=== PATIENT | male | born 2005 | race Caucasian/White ===

== ENCOUNTER 2025-02-25 12:51 | Emergency (ER) | payer BC, SELFPAY ==
--- NOTE | ~2025-02-25 | CT_ITS ---
CT of the Abdomen and Pelvis: Indication: Periumbilical pain Technique: 2.5 mm axial scans were obtained through the abdomen and pelvis following intravenous adm inistration of 100 cc of Omnipaque 350. Dose reduction technique was used on this scan by utilizing a utomated exposure control and iterative reconstruction technique. The dose-length product (DLP) was 3 13.29 mGy-cm. Findings: Scans through the lung bases are unremarkable. The liver, spleen, pancreas, gallbladder, adrenals and kidneys are within normal limits. No evidence of aortic aneurysm. No lymphadenopathy. No bowel obstruction or bowel wall thickening. There is no evidence to suggest acute appendicitis. Images through the pelvis were performed. Urinary bladder unremarkable. No pelvic mass seen. Trace pe lvic ascites. Impression: Trace pelvic ascites, otherwise unremarkable exam. Reviewed, dictated and finalized at location . Impression: Trace pelvic ascites, otherwise unremarkable exam.
[2025-02-25 13:00] VITALS: BP 133/82; PULSE 66; RESP 18; TEMP 36.4; O2SAT 100
--- OUTSIDE RECORDS SUMMARY | 2025-02-25 13:00 | XMS_ITS | Clinical Summary ---
Author Organization [facility] Address [address] [place] [address] Care Team Providers Care Personal Lines Sales Rep Name Role Phone Unavailable Primary Care Provider Unavailabl e Source Comments [facility] [employer],non-owned Affiliates and Associated Physician Practices is amultiple site organization consisting of ambulatory clinics and hospital sitesin [place], [place], [place] and [place]. This disclosure is being madepursuant to the Care Everywhere program and may not contain all information available regarding this patient. Last updated 18.[facility] [employer] Allergies No known active allergies Medications * Be aware that medications may not be up to date on this document. Alwaysverify current medications with the patient. cefdinir (OMNICEF) 300 MG capsule Take 300 mg by mouth every 12 hours 1 Active cetirizine (ZYRTEC ALLERGY) 10 MG gel capsule Active ketorolac (TORADOL) 10 MG tabletIndications: FCU (flexor carpi ulnaris) tenosynovitis Take 1 (one) tablet by mouth every 6 hours 20 tablet 1 Active Active Problems No known active problems Family History Medical History Relation Name Comments Hypertension Father Hypertension Mother Relation Name Status Comments Father Alive Mother Alive Social History Tobacco Use Types Packs/Day Years Used Date Smoking Tobacco: Never Smokeless Tobacco: Never Alcohol Use Standard Drinks/Week Comments Not Currently 0 (1 standard drink = 0.6 oz pur e alcohol) Sex and Gender Information Value Date Recorded Sex Assigned at Not on file 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 Gender Identity Not on file Sexual Orientation Not on file Last Filed Vital Signs Vital Sign Reading Time Taken Comments Blood Pressure - - Pulse - - Temperature - - Respiratory Rate - - Oxygen Saturation - - Inhaled Oxygen Concentration - - Weight 77.1 kg (170 lb) 05/23/2021 1:00 PM CDT Height 177.8 cm (5' 10 ) 05/23/2021 1:00 PM CDT Body Mass Index 24.39 05/23/2021 1:00 PM CDT Plan of Treatment Health Maintenance Due Date Last Done Comments HIV SCREENING 12/22/2019 HPV VACCINE (1 - Male 3-dose series) 12/22/2019 MENINGOCOCCAL (Group B) VACC INE SHARED DECISION-MAKING (1 of 2 - Standard) 2020 HEPATITIS C SCREENING 12/17/2022 DTAP/TDAP/TD VACCINES (1 - Tdap) 12/22/2023 HEPATITIS B VACCINE (1 of 3 - 19+ 3-dose series) 12/22/2023 COVID-19 VACCINE (1 - 2023-2 5 season) 2024 DEPRESSION SCREENING 10/15/2024 INFLUENZA VACCINE (Season Ended) 2025 ZOSTER VACCINE (1 of 2) 2054 HIB VACCINE Aged Out No longer eligi ble based on patient's age to complete this topic MENINGOCOCCAL GROUPS A/C/Y/W VACCINE Aged Out No longer eligible b ased on patient's age to complete this topic PNEUMOCOCCAL VACCINE Aged Out No long er eligible based on patient's age to complete this topic Insurance [facility] [employer] PLAN Member Subscriber Plan / Payer (Ef fective for All Dates) Name:Annika Tirado Relation to Subscriber:Not on file Name:ANNIKA TIRADO Subscriber ID:Not on file Date of :2005 (Home) Address: [address] [place] [id number] Payer ID:Not on file Type:HMO Address: [address] GROUP HE[employer] PLAN HEALTH PLAN GROUP HEALTH PLAN Member Subscriber Plan / Payer (Ef fective for All Dates) Name:Annika Tirado Relation to Subscriber:Not on file Name:ANNIKA TIRADO Subscriber ID:Not on file Date of :2005 (Home) Address: [address] [place] [address] Payer ID:Not on file Type:HMO Address: [address] GROUP HE[employer] PLAN Member Subscriber Plan / Payer (Ef fective for All Dates) Name:Annika Tirado Relation to Subscriber:Not on file Name:ANNIKA TIRADO Subscriber ID:Not on file Date of :2005 (Home) Address: [address] [place] [address] Payer ID:Not on file Type:HMO Address: [address] GROUP HE[employer] PL[employer] Member Subscriber Plan / Payer (Ef fective for All Dates) Name:Annika Tirado Relation to Subscriber:Not on file Name:ANNIKA TIRADO Subscriber ID:Not on file Date of :2005 (Home) Address: [address] [place] [address] Payer ID:Not on file Type:HMO Address: [address] [employer] GROUP HEALTH PLAN GROUP HEALTH PLAN HEALTH CARE CARE CARE HEALTH CARE CARE Member Subscriber Plan / Payer (Ef fective 2020-) Name:Celestino Annika Acosta Member ID:[id number] Relation to Subscriber:Child Name:EARLE TIRADO Subscriber ID:Not on file Date of :1967 (Home) Address: [address] [place] [address] Payer ID:[id number] (NAIC) Type:PPO Address: [place] [id number] [place] [id number]
--- OUTSIDE RECORDS SUMMARY | 2025-02-25 13:00 | XMS_ITS | Referral Summary ---
Author Organization [facility] Address [address] [place] [address] Care Team Providers Care Lead Trainer Name Role Phone Huan Martines MD Primary Care Provider [phone] Allergies No known active allergies Medications cetirizine 10 mg capsule Take by mouth Active naproxen (NAPROSYN) 500 mg tablet TAKE 1 TABLET BY MOUTH TWICE A DAY NEEDED ON A FULL STOMACH OR WITH AN ANTACID FOR 15 DAYS 12/25/2022 Active Active Problems Problem Noted Date Diagnosed Date Contusion of rib on right side 01/19/2023 Social History Tobacco Use Types Packs/Day Years Used Date Smoking Tobacco: Never Smokeless Tobacco: Never Sex and Gender Information Value Date Recorded Sex Assigned at Not on file 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 H[facility]/PPO Address: [address] [place] [id number] [facility] H[facility]/PPO Address: [address] [phone] [place] [address] [facility]/PPO Address: [facility] [address] [place] [address] Care Teams Lead Trainer Relationship Specialty Start Date End Date Huan Martines MD PCP - General Family Medicine 09/17/19
--- OUTSIDE RECORDS SUMMARY | 2025-02-25 13:00 | XMS_ITS | Clinical Summary ---
Author Organization [facility] Address [address] [place] [address] Care Team Providers Care Flatware Maker Name Role Phone Huan Martines MD Primary Care Provider Allergies No known active allergies Medications cetirizine 10 mg capsule Take by mouth Active naproxen (NAPROSYN) 500 mg tablet TAKE 1 TABLET BY MOUTH TWICE A DAY NEEDED ON A FULL STOMACH OR WITH AN ANTACID FOR 15 DAYS 12/25/2022 Active Active Problems Problem Noted Date Diagnosed Date Contusion of rib on right side 01/19/2023 Medical History Medical History Date Comments Rib contusion 01/19/2023 Contusion of rib on right side 01/19/2023 Family History Medical History Relation Name Comments No Known Problems Father No Known Problems Mother Relation Name Status Comments Father Alive Mother Alive Social History Tobacco Use Types Packs/Day Years Used Date Smoking Tobacco: Never Smokeless Tobacco: Never Sex and Gender Information Value Date Recorded Sex Assigned at Not on file 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 Gender Identity Not on file Sexual Orientation Not on file Obstetrics History Last Filed Vital Signs Vital Sign Reading [...] 01/25/2023 12:59 PM CDT Plan of Treatment Health Maintenance Due Date Last Done Comments Depression Screening 2005 Hepatitis C Screening 2004 DTaP/Tdap/Td Vaccine (1 - Tdap) 12/22/2015 Varicella Vaccines (1 of 2 - 13+ 2-dose series) 2017 HPV Vaccines (1 - Male 3-dos e series) 12/22/2019 Meningococcal B Vaccine (1 o f 2 - Standard) 2020 Hepatitis B Screening 2022 Regular Well Visit/Exam 18-64 2022 Covid-19 Vaccine (3 - 2023-2 5 season) 2024 06/25/2021, 05/25/2021 Influenza Vaccine (Season Ended) 2025 Meningococcal Vaccine Aged Out No felicity anson eligible based on patient's age to complete this topic Pneumococcal vaccine <65 Aged Out No longer eligible based on patient's age to complete this topic Insurance [facility] [place] [address] Care Teams Flatware Maker Relationship Specialty Start Date End Date Huan Martines MD PCP - General Family Medicine 09/17/19
--- OUTSIDE RECORDS SUMMARY | 2025-02-25 13:00 | XMS_ITS | Clinical Summary ---
Author Organization [facility] Address [address] [place] [address] Care Team Providers Care Printed Circuit Board Assembler Name Role Phone Oscar Barron DO Primary Care Provider [phone] Allergies No known active allergies Medications No known medications Active Problems No known active problems Social History Tobacco Use Types Packs/Day Years Used Date Smoking Tobacco: Never Assessed Tobacco Cessation:Counseling Given: Not Answered Adolescent Education Answer Date Record ed Getting School Help Needed Not on file 05/20 Sex and Gender Information Value Date Recorded Sex Assigned at Not on file Legal Sex Male 10:18 AM CDT Gender Identity Not on file Sexual Orientation Not on file Last Filed Vital Signs Vital Sign Reading Time Taken Comments Blood Pressure 122/58 08/09/2022 10:04 AM EDT Pulse 61 08/09/2022 10:04 AM EDT Temperature 37 C (98.6 F) 08/09/2022 10:04 AM EDT Respiratory Rate - - Oxygen Saturation 99% 08/09/2022 10:04 AM EDT Inhaled Oxygen Concentration - - Weight 80.7 kg (178 lb) 08/09/2022 10:04 AM EDT Height 181.6 cm (5' 11.5 ) 08/09/2022 10:04 AM E DT Body Mass Index 24.48 08/09/2022 10:04 AM EDT Plan of Treatment Health Maintenance Due Date Last Done Comments CHLAMYDIA SCREENING (ANNUAL) 11-24 YEARS 12/22/2015 HPV VACCINES (1 - Male 3-dose series) 12/22/2019 DTAP/TDAP/TD VACCINES (1 - Tdap) 12/22/2023 HEPATITIS B VACCINES (1 of 3 - 19+ 3-dose series) 06/2024 INFLUENZA VACCINE (#1) 2024 Insurance [facility] SHARED PPO [facility] PPO Care Teams Printed Circuit Board Assembler Relationship Specialty Start Date [place] [id number] [place] [place] [address] PCP - General Family Practice 08/04/22
[2025-02-25] MEDS: SODIUM CHLORIDE 0.9% IV 1,000 ML 999 ML IV CONT (13:15)
[2025-02-25] MEDS: ONDANSETRON INJ 4 MG/2 ML VIAL IV PUSH (13:16)
[2025-02-25] MEDS: KETOROLAC 30 MG/ML VIAL (*BKC) 15 MG IV PUSH (13:17)
[2025-02-25] MEDS: FAMOTIDINE 20 MG/2 ML VIAL IV PUSH (13:18)
[2025-02-25 13:23] LABS: Basophils Percent Auto 0.3 % (0.2-1.2); Eosinophils Absolute Auto 0.1 K/mm3 (0-0.3); Eosinophils Percent Auto 1.5 % (0-4.4); Hematocrit 46.8 % (42.0-52.0); Hemoglobin 15.9 g/dL (14.0-18.0); Immature Granulocyte Absolute 0.02 K/mm3 (0.00-0.031); Immature Granulocyte Percent A 0.3 % (0-0.5); Lymphocytes Absolute Auto 1.34 K/mm3 (0.9-3.2); Lymphocytes Percent Auto 18.8 % (18.3-44.2); Mean Corpuscular Hemoglobin 29.7 pg (26-34); Mean Corpuscular Volume 87.5 fl (80-100); Mean Platelet Volume 10.6 fl (7.4-10.4); Monocytes Absolute Auto 0.7 K/mm3 (0.1-0.6); Monocytes Percent Auto 9.1 % (2.6-8.5); Platelet Count Result 200 k/mm3 (150-375); Red Blood Count 5.35 M/mm3 (4.6-6.20); Red Cell Distribution Width 12.5 % (11.5-14.5); White Blood Count 7.1 K/mm3 (4.5-10.0)
[2025-02-25 13:28] LABS: Add Urine Microscopic? NO; Appearance Urine Clear (Clear); Bilirubin Urine Negative (Negative); Blood Urine Negative (Negative); Color Urine Yellow (Yellow); Glucose Urine UA Negative (Negative); Ketones Urine Negative (Negative); Leukocyte Esterase Ur Negative LEU/UL (Negative); Nitrate Urine Negative (Negative); Protein Urine Negative (Negative); Specific Grav Ur 1.021 (1.001-1.035); pH Urine 7.5 (5.0-9.0)
[2025-02-25 13:33] LABS: Alanine Aminotransferase 20 U/L (6-50); Albumin Level 5.1 g/dL (3.5-5.1); Alkaline Phosphatase 75 U/L (38-126); Anion Gap 14 mmol/L (4-12); Aspartate Amino Transferase 28 U/L (17-59); Bilirubin,Total 2.5 mg/dL (0.2-1.3); Blood Urea Nitrogen 15 mg/dL (9-20); Calcium 9.8 mg/dL (8.4-10.2); Carbon Dioxide 21 mmol/L (22-30); Chloride 105 mmol/L (98-107); Estimated CRCL calculation 125 ml/min; Estimated Glomerular Filt Rate > 60; Glucose 104 mg/dL (65-110); Lipase 37 U/L (23-300); Potassium 4.2 mmol/L (3.4-5.0); Sodium 140 mmol/L (137-145)
--- NOTE | 2025-02-25 13:38 | ED_ITS ---
HPI - Abdominal Pain General Chief Complaint: Abdominal Pain Stated Complaint: abd pain Time Seen by Provider: 02/25/25 12:56 History of Present Illness HPI narrative: 19-year-old male presents to the ED with his mother at bedside for abdominal pain and diarrhea that started 2 hours prior to arrival. Patient states the pain is in the center of his abdomen. He has 4 episodes of diarrhea since the onset of symptoms. Reports associated nausea but no vomiting. He denies fever, dysuria or hematuria. No prior abdominal surgeries. Related Data Home Medications Medication Instructions Recorded Confirmed Last Taken Type valacyclovir 1 gram tablet 2,000 mg PO Q12H PRN 06/18/24 06/18/24 Unknown History (Valtrex) Allergies Allergy/AdvReac Type Severity Reaction Status Date / Time No Known Allergies Allergy Verified 02/25/25 13:03 Review of Systems 2 Review of Systems: All systems reviewed & are unremarkable except as noted in HPI and below PMFSH Family History Family History Father Palpitations Acid reflux Mother No problems noted. Sibling No problems noted. Other Family history of lung cancer Social History Social History Smoking status: Never smoker Second hand tobacco smoke exposure: No Alcohol intake: never Substance use: never Substance use type: does not use Lack of Transportation: No Lack of Food: Never True Current Housing: I Have Housing Concerned About Future Housing: No Difficulty Paying Gas/Electric Bills: No Difficulty Paying for Meds: No Currently Unemployed: No Education: High School Diploma/GED Difficulty w/ Childcare or Family Care: No Living arrangements: with family Occupation/Education: student Additional occupation/education comments: 12th. Gender identity (if verbalized by the patient): Male Spiritual care concerns: No Exam 2 Narrative: GENERAL: Tearful, appears uncomfortable HEAD: Normocephalic, atraumatic. EYES: EOMI. ENT: Nares clear, no rhinorrhea or epistaxis. Mucous membranes moist. NECK: Supple. CHEST: Clear to auscultation. No respiratory distress. HEART: Regular rate and rhythm. No murmur heard. Normal peripheral pulses. ABDOMEN: Normoactive bowel sounds. Abdomen soft with tenderness in the periumbilical region and epigastrium. No rebound or rigidity. No CVA tenderness. EXTREMITIES: Normal range of motion. No edema. SKIN: Warm, dry, no rash. NEURO: No focal deficits. Alert and oriented x3 Course Vital Signs Vital signs: Vital Signs Temperature 97.6 F 02/25/25 13:00 Pulse Rate 66 02/25/25 13:00 Respiratory Rate 18 02/25/25 13:00 Blood Pressure 133/82 02/25/25 13:00 Pulse Oximetry 100 02/25/25 13:00 Oxygen Delivery Room Air 02/25/25 13:00 Temperature 97.6 F 02/25/25 13:00 Pulse Rate 53 L 02/25/25 14:02 Respiratory Rate 16 02/25/25 14:02 Blood Pressure 119/69 02/25/25 14:02 Pulse Oximetry 98 02/25/25 14:02 Oxygen Delivery Room Air 02/25/25 13:00 MDM - Abdominal Pain MDM Narrative Medical decision making narrative: 19-year-old male presents emergency department for periumbilical abdominal pain with diarrhea that started 2 hours prior to arrival. See HPI for further history. Triage vitals are stable. Exam is significant for the above. CBC without leukocytosis or anemia. Chemistries show a bicarb of 21 anion gap of 14 consistent with dehydration. Glucose normal. Fluids provided. Bilirubin is elevated at 2.5 with normal AST, ALT and alk phos. Lipase is within normal limits. UA is unremarkable. CT abdomen pelvis shows trace pelvic ascites with an otherwise unremarkable exam. Patient and mother at bedside updated on results. Patient received IV fluids, Toradol, Pepcid and Zofran with improvement. Still having minimal abdominal cramping. Will provide p.o. Bentyl. On repeat abdominal exam he has mild tenderness to the epigastrium, no right upper quadrant tenderness and negative Arreola sign. I suspect his presentation is due to viral gastroenteritis. I encouraged increased fluid intake, bland diet, follow-up with PCP and discussed strict ED return precautions. Zofran, Pepcid and Bentyl sent to pharmacy. Patient and mother agreeable with the plan verbalized understanding. Discharged in stable condition. Lab Data 02/25/25 13:08 02/25/25 13:08 Labs: Lab Results 02/25/25 Range/Units 13:08 WBC 7.1 (4.5-10.0) K/mm3 RBC 5.35 (4.6-6.20) M/mm3 Hgb 15.9 (14.0-18.0) g/dL Hct 46.8 (42.0-52.0) % MCV 87.5 (80-100) fl MCH 29.7 (26-34) pg MCHC 34.0 (32-36) g/dl RDW 12.5 (11.5-14.5) % Plt Count 200 (150-375) k/mm3 MPV 10.6 H (7.4-10.4) fl Immature Gran % (Auto) 0.3 (0-0.5) % Neut % (Auto) 70.0 (45.5-73.1) % Lymph % (Auto) 18.8 (18.3-44.2) % Alpine % (Auto) 9.1 H (2.6-8.5) % Eos % (Auto) 1.5 (0-4.4) % Baso % (Auto) 0.3 (0.2-1.2) % Lymph # (Auto) 1.34 (0.9-3.2) K/mm3 Alpine # (Auto) 0.7 H (0.1-0.6) K/mm3 Eos # (Auto) 0.1 (0-0.3) K/mm3 Baso # (Auto) 0.0 (0.0-0.1) K/mm3 Abs Immat Gran (auto) 0.02 (0.00-0.031) K/mm3 Absolute Neuts (auto) 5.0 (1.3-6.7) K/mm3 Absolute Nucleated RBC 0.000 (0.0-0.012) K/mm3 Nucleated RBC % 0.0 (0.0-0.2) % Sodium 140 (137-145) mmol/L Potassium 4.2 (3.4-5.0) mmol/L Chloride 105 (98-107) mmol/L Carbon Dioxide 21 L (22-30) mmol/L Anion Gap 14 H (4-12) mmol/L BUN 15 (9-20) mg/dL Creatinine 0.91 (0.7-1.3) mg/dL Estim Creat Clear Calc 125 ml/min Estimated GFR > 60 (59 - ) Glucose 104 (65-110) mg/dL Calcium 9.8 (8.4-10.2) mg/dL Total Bilirubin 2.5 H (0.2-1.3) mg/dL AST 28 (17-59) U/L ALT 20 (6-50) U/L Alkaline Phosphatase 75 (38-126) U/L Total Protein 8.0 (6.3-8.2) g/dL Albumin 5.1 (3.5-5.1) g/dL Lipase 37 (23-300) U/L Urine Color Yellow (Yellow) Urine Appearance Clear (Clear) Urine pH 7.5 (5.0-9.0) Ur Specific Fleischmanns 1.021 (1.001-1.035) Urine Protein Negative (Negative) mg/dL Urine Glucose (UA) Negative (Negative) mg/dL Urine Ketones Negative (Negative) mg/dL Ur Blood (Man) Negative (Negative) Urine Nitrate Negative (Negative) Urine Bilirubin Negative (Negative) Urine Urobilinogen 1.0 (<2.0) mg/dL Leukocyte Esterase Rfl Negative (Negative) JOSE JUAN/UL Imaging Data Radiologist's impression: ITS Impressions Abdomen/Pelvis CT 02/25/25 13:50 Impression: Trace pelvic ascites, otherwise unremarkable exam. Discharge Plan Discharge Clinical Impression: Gastroenteritis, Hyperbilirubinemia, Pelvic ascites Patient Disposition: Home Condition: Stable Instructions: Antibiotic Form, Gastroenteritis (DC) Additional Instructions: You were evaluated in the emergency department for abdominal pain and diarrhea. I suspect her symptoms are due to viral gastroenteritis as discussed. Please make sure to drink plenty of fluids including water, Gatorade and Pedialyte. Take dicyclomine as needed for spasms, ondansetron as needed for nausea and vomiting, Pepcid as an antacid. Incidentally her lab work showed an elevated bilirubin today and the CT showed trace pelvic ascites as discussed. Please follow-up with your primary care provider regarding this. Return to the emergency department if you develop fever of 100.4 or greater, your unable to tolerate food or fluids, you develop worsening or changing pain, or other concerning symptoms. Patient Language: [place] Prescriptions: New dicyclomine 10 mg capsule 10 mg PO BID Qty: 14 0RF ondansetron 4 mg tablet,disintegrating 4 mg PO Q8H Qty: 14 0RF famotidine 20 mg tablet 20 mg PO DAILY Qty: 14 0RF No Action valacyclovir [Valtrex] 1 gram tablet 2,000 mg PO Q12H PRN azithromycin [Zithromax] 250 mg tablet See Rx Instructions PO .COMPLEX Qty: 6 0RF Rx Instructions: take 500 mg today (day 1), then 250 mg for 4 days (days 2-5) PO Follow-up/Referrals: Huan Martines MD [Primary Care Provider] -
[2025-02-25 14:02] VITALS: BP 119/69; PULSE 53; RESP 16; O2SAT 98
--- OUTSIDE RECORDS SUMMARY | 2025-02-25 14:21 | XMS_ITS | Clinical Summary ---
Author Organization [facility] Address [address] [place] [address] Care Team Providers Care Lunchroom Mother Name Role Phone Unavailable Primary Care Provider Unavailabl e Source Comments [facility] [employer],non-owned Affiliates and Associated Physician Practices is amultiple site organization consisting of ambulatory clinics and hospital sitesin [place], [place], [place] and [place]. This disclosure is being madepursuant to the Care Everywhere program and may not contain all information available regarding this patient. 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 Gender Identity Not on file Sexual Orientation [...] patient's age to complete this topic Insurance [facility] [employer] [facility] Member Subscriber Plan / Payer (Ef fective for All Dates) Name:Annika Tirado Relation to Subscriber:Not on file Name:ANNIKA TIRADO Subscriber ID:Not on file Date of :2005 (Home) Address: [address] [place] [id number] Payer ID:Not on file Type:HMO Address: [address] GROUP HE[employer] HEALTH PLAN GROUP HEALTH PLAN Member Subscriber Plan / Payer (Ef fective for All Dates) Name:Annika Tirado Relation to Subscriber:Not on file Name:ANNIKA TIRADO Subscriber ID:Not on file Date of :2005 (Home) Address: [address] [place] [address] Payer ID:Not on file Type:HMO Address: [address] GROUP HE[employer] PLAN Member Subscriber Plan / Payer (Ef fective for All Dates) Name:Annika Tirado Relation to Subscriber:Not on file Name:ANNIKA TIRADO Subscriber ID:Not on file Date of :2005 (Home) Address: [address] [place] [address] Payer ID:Not on file Type:HMO Address: [address] [employer] Member Subscriber Plan / Payer (Ef fective for All Dates) Name:Annika Tirado Relation to Subscriber:Not on file Name:ANNIKA TIRADO Subscriber ID:Not on file Date of :2005 (Home) Address: [address] [place] [address] Payer ID:Not on file Type:HMO Address: [address] GROUP [employer] GROUP HE[employer] PLAN GROUP [employer]AN HEALTH CARE CARE CARE HEALTH CARE CARE Member Subscriber Plan / Payer (Ef fective 2020-) Name:Celestino Annika Acosta Member ID:[id number] Relation to Subscriber:Child Name:EARLE TIRADO Subscriber ID:Not on file Date of :1967 (Home) Address: [address] [place] [address] Payer ID:[id number] (NAIC) Type:PPO Address: [place] [id number] [place] [phone]
--- OUTSIDE RECORDS SUMMARY | 2025-02-25 14:21 | XMS_ITS | Clinical Summary ---
Author Organization [facility] Address [address] [place] [address] Care Team Providers Care Bookstore Manager Name Role Phone Oscar Barron DO Primary Care Provider [phone] Allergies No known active allergies Medications No [...] series) 06/2024 INFLUENZA VACCINE (#1) 2024 Insurance [facility] SHARED PPO [facility] SHARED PPO Care Teams Bookstore Manager Relationship Specialty Start [place] [id number] [place] [address] PCP - General Family Practice 08/04/22
--- OUTSIDE RECORDS SUMMARY | 2025-02-25 14:21 | XMS_ITS | Clinical Summary ---
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
--- OUTSIDE RECORDS SUMMARY | 2025-02-25 14:21 | XMS_ITS | Referral Summary ---
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
[2025-02-25] MEDS: DICYCLOMINE HCL 10 MG CAPSULE 20 MG PO (15:07)
== END 2025-02-25 15:08 | disposition home or self-care (01) ==
PROVIDERS: Emergency Medicine; Emergency Provider Physician Assistant; PCP Family Medicine
DX: K52.9 Noninfective gastroenteritis and colitis, unspecified (principal); E80.6 Other disorders of bilirubin metabolism; R18.8 Other ascites
CPT/HCPCS: 36415; 74177; 80053; 81003; 83690; 85025; 96361; 96374; 96375; 99284; A9270; J1885; J2405; J7030; Q9967